=== PATIENT | male | born 1980 | race African-American/Black ===

== ENCOUNTER 2024-03-29 20:52 | Inpatient (IN) | payer OTHER ==
[2024-03-29] MEDS ORDERED: ONDANSETRON 4 MG/2 ML VIAL ONE (21:06)
[2024-03-29] MEDS ORDERED: LORazepam 2 MG/ML VIAL ONE (21:06)
[2024-03-29] MEDS ORDERED: ASPIRIN 81 MG CHEWABLE TABLET ONE (21:07)
[2024-03-29] MEDS ORDERED: MORPHINE 4 MG/ML SYR ONE (21:07)
[2024-03-29] MEDS ORDERED: NA CHLORIDE 0.9% 1,000 ML ONE (21:07)
[2024-03-29 21:28] LABS: Absolute Basophils 0.1 K/uL (0-0.5); Absolute Eosinophils 0.1 K/uL (0-0.5); Absolute Lymphocytes (CBC) 3.6 K/uL (0.7-4.9); Absolute Monocytes 0.9 K/uL (0.1-1.3); Absolute Neutrophil 5.2 K/uL (1.8-8.0); Basophils % 0.6 % (0-1.3); Eosinophils % 1.3 % (0-4.4); Hematocrit 41.9 % (39.6-49.0); Hemoglobin 13.9 g/dL (13.6-17.9); Lymphocytes % 36.6 % (15.3-44.8); MCH 26.8 pg (27.0-35.0); MCHC 33.2 g/dL (32.0-36.0); MCV 80.8 fL (80-100); MPV 8.6 fL (7.6-11.3); Monocytes % 9.4 % (3.3-12.3); Neutrophils % 52.1 % (41.7-73.7); Platelets 264 thou/uL (152-406); RBC Red Blood Cell Count 5.19 M/uL (4.33-5.43); Red Cell Distribution Width 14.4 % (12.1-15.2)
[2024-03-29 21:32] LABS: PT Prothrombin Time 11.6 SECONDS (9.5-12.5); Protime INR 1.06
[2024-03-29 21:55] LABS: ALT/SGPT 37 U/L (16-61); Albumin 3.8 g/dL (3.4-5.0); Albumin/Globulin Ratio 0.9 (1.1-1.8); Alkaline Phosphatase 77 U/L (45-117); Anion Gap 8.6 mEq/L (5.0-15.0); BUN Blood Urea Nitrogen 9 mg/dL (7-18); Bicarbonate 27 mEq/L (21-32); Bilirubin Total 0.4 mg/dL (0.2-1.0); Globulin 4.1 g/dL (2.3-3.5); Glomerular Filtration Rate 83 ml/min (=/>90); Glucose Level 104 mg/dL (74-106); NT PRO-BNP 41 pg/mL (<125); Protein, Total 7.9 g/dL (6.4-8.2); Sodium Level 139 mEq/L (136-145); Troponin High Sensitivity 3.5 pg/mL (<58.9)
[2024-03-29 21:56] LABS: AST/SGOT 38 U/L (15-37); Bilirubin Direct < 0.2 mg/dL (0-0.2); Bilirubin Indirect, Calculated 0.2 mg/dL (0.2-0.8); Magnesium 2.1 mg/dL (1.6-2.4); Potassium 3.6 mEq/L (3.5-5.1)
--- NOTE | 2024-03-29 22:10 | RAD REPORT ---
EXAM DESCRIPTION: RAD - Chest Single View - 03/29/2024 10:04 pm CLINICAL HISTORY: CHEST PAIN Chest pain. COMPARISON: No comparisons FINDINGS: Portable technique limits examination quality. The lungs are grossly clear. The heart is normal in size. No displaced fractures. IMPRESSION: No acute intrathoracic process suspected.
[2024-03-29 23:35] LABS: Barbiturates NEGATIVE (NEGATIVE); Benzodiazepines NEGATIVE (NEGATIVE); Cocaine NEGATIVE (NEGATIVE); METHAMPHETAM NEGATIVE (NEGATIVE); Methadone NEGATIVE (NEGATIVE); Opiates POSITIVE (NEGATIVE); Phencyclidine NEGATIVE (NEGATIVE); THC Cannibis NEGATIVE (NEGATIVE)
--- NOTE | 2024-03-30 01:54 | EDPHYS ---
Physician Documentation [facility] Name: Carmelo Mcclendon III Age: 43 yrs Sex: Male : 1980 Arrival Date: 03/29/2024 Time: 20:52 Bed 3 Private MD: ED Physician Jose Sullivan HPI: 03/30 01:38 This 43 yrs old Black Male presents to ER via Wheelchair with complaints of Chest Pain. sp4 01:46 43-year-old male presents with acute onset midsternal chest pain associated with sp4 shortness of breath and diaphoresis. This happened just prior to arrival. . Historical: - Allergies: 03/29 21:02 No Known Allergies; tl4 - Home Meds: 21:02 None [Active]; tl4 - PMHx: 21:02 None; tl4 - PSHx: 21:02 None; tl4 - Immunization history:: Adult Immunizations unknown. - Infectious Disease History:: Denies. - Social history:: Smoking status: Patient denies any tobacco usage or history of. - Family history:: not pertinent. ROS: 03/30 01:46 Constitutional: Negative for fever, chills, and weight loss, positive for acute chest sp4 pain shortness of breath diaphoresis All other systems are negative, Exam: 01:46 Constitutional: This is a well developed, well nourished patient who is awake, alert, sp4 positive for diaphoretic male in no acute distress positive for Thompson sign on arrival. Head/Face: Normocephalic, atraumatic. Eyes: Pupils equal round and reactive to light, extra-ocular motions intact. Lids and lashes normal. Conjunctiva and sclera are not injected. Cornea within normal limits. Periorbital areas with no swelling, redness, or edema. ENT: Nares patent. No nasal discharge, no septal abnormalities noted. Tympanic membranes are normal and external auditory canals are clear. Oropharynx with no redness, swelling, or masses, exudates, or evidence of obstruction, uvula midline. Mucous membranes moist. Neck: Trachea midline, no thyromegaly or masses palpated, and no cervical lymphadenopathy. Supple, full range of motion without nuchal rigidity, or vertebral point tenderness. Chest/axilla: Normal chest wall appearance and motion. Nontender with no deformity. No lesions are appreciated. Cardiovascular: Regular rate and rhythm with a normal S1 and S2. No gallops, murmurs, or rubs. Normal PMI, no JVD. No pulse deficits. Respiratory: Lungs have equal breath sounds bilaterally, clear to auscultation and percussion. No rales, rhonchi or wheezes noted. No increased work of breathing, no retractions or nasal flaring. Abdomen/GI: Soft, with normal bowel sounds. No distension or tympany. No guarding or rebound. No evidence of tenderness throughout. Back: No spinal tenderness. No costovertebral tenderness. Skin: Warm, dry with normal turgor. Normal color with no rashes, no lesions, and no evidence of cellulitis. MS/ Extremity: Pulses equal, no cyanosis. Neurovascular intact. Full, normal range of motion. Neuro: Awake and alert, GCS 15, oriented to person, place, time, and situation. Cranial nerves II-XII grossly intact. Motor strength 5/5 in all extremities. Sensory grossly intact. Psych: Awake, alert, with orientation to person, place and time. Behavior, mood, and affect are within normal limits 01:46 ECG was reviewed by the Attending Physician. EKG at 2102 normal sinus rhythm, normal EKG rate 73 Vital Signs: 03/29 21:01 BP 184 / 119; Pulse 76; Resp 15; Temp 98.3(O); Pulse Ox 97% on R/A; Weight 106.59 kg; tl4 Height 5 ft. 11 in. ; Pain 10/10; 21:10 BP 162 / 104; Pulse 78; Resp 18; Pulse Ox 100% on R/A; km8 21:15 BP 144 / 89; Pulse 71; Resp 17; Pulse Ox 99% on R/A; km8 22:00 BP 147 / 99; Pulse 71; Resp 18; Pulse Ox 99% on R/A; km8 22:30 BP 136 / 87; Pulse 73; Resp 17; Pulse Ox 98% on R/A; km8 23:00 BP 148 / 99; Pulse 68; Resp 16; Pulse Ox 99% on R/A; km8 23:30 BP 134 / 90; Pulse 68; Resp 16; Pulse Ox 100% on R/A; km8 03/30 00:00 BP 164 / 118; Pulse 65; Resp 18; Pulse Ox 100% on R/A; km8 00:30 BP 138 / 96; Pulse 66; Resp 18; Pulse Ox 100% on R/A; km8 01:00 BP 151 / 105; Pulse 62; Resp 16; Pulse Ox 99% on R/A; km8 01:30 BP 146 / 97; Pulse 60; Resp 16; Pulse Ox 100% on R/A; km8 02:00 BP 152 / 100; Pulse 62; Resp 16; Pulse Ox 100% on R/A; km8 03/29 21:01 Body Mass Index 32.77 (106.59 kg, 180.34 cm) tl4 03/29 21:01 Pain Scale: Adult tl4 MDM: 03/29 21:07 Patient medically screened. sp4 03/30 00:42 ED course: IMPRESSION: The thoracic and abdominal aorta are within normal limits. No sp4 evidence for significant aneurysm and/or dissection. No evidence for significant central pulmonary embolus. Slightly distended gallbladder with minimal gallbladder wall thickening. No definitive pericholecystic fluid and/or cholelithiasis. Recommend further evaluation with right upper quadrant ultrasound and/or hepatobiliary scan. Electronically signed by: Jasbir Rice MD 03/29/2024 11:52 PM CD. 01:38 ED course: EXAM DESCRIPTION: Abdomen Exam Limited, gallbladder sonogram CLINICAL sp4 HISTORY: ABD PAIN COMPARISON: None FINDINGS: There are no gallstones, gallbladder wall thickening or pericholecystic fluid collection. Common bile duct is nondilated. The common bile duct measured 3.3 mm in diameter. IMPRESSION: No acute abnormalities. . 01:51 Differential diagnosis: acute myocardial infarction, acute pericarditis, anxiety, sp4 coronary artery disease chest wall pain, congestive heart failure cholecystitis. HEART Score: History: Highly Suspicious (2), ECG: Normal (0), Age: < or = 45 years (0), Risk Factors: No Risk Factors Known (0), Troponin: < or = 1 x Normal Limit (0), Total Score = 2. The patient was given aspirin in the Emergency Department. Data reviewed: vital signs. Data reviewed: nurses notes, lab test result(s), EKG, radiologic studies, CT scan, ultrasound. ED course: We requested admission secondary to presentation. We requested observation. . 03/29 20:58 Order name: Basic Metabolic Panel; Complete Time: 23:58 sp4 03/29 20:58 Order name: CBC with Diff; Complete Time: 22:12 sp4 03/29 20:58 Order name: LFT's; Complete Time: 23:58 sp4 03/29 20:58 Order name: Magnesium; Complete Time: 23:58 sp4 03/29 20:58 Order name: NT PRO-BNP; Complete Time: 23:58 sp4 03/29 20:58 Order name: PT-INR; Complete Time: 22:12 sp4 03/29 20:58 Order name: Troponin HS; Complete Time: 23:58 sp4 03/29 22:12 Order name: Urine Drug Screen; Complete Time: 23:58 sp4 03/29 22:18 Order name: T4 Free; Complete Time: 23:58 EDMS 03/29 22:18 Order name: Thyroid Stimulating Hormone; Complete Time: 23:58 EDMS 03/29 23:58 Order name: Troponin High Sensitivity; Complete Time: 01:35 sp4 03/30 02:01 Order name: D-Dimer EDMS 03/30 02:06 Order name: Hemoglobin A1c EDMS 03/30 02:06 Order name: Lipid Profile EDMS 03/30 02:07 Order name: Troponin High Sensitivity EDMS 03/29 20:58 Order name: XRAY Chest (1 view); Complete Time: 22:12 4 03/29 21:06 Order name: CT Aorta for Dissection sp4 03/30 00:43 Order name: US Abdomen Limited sp4 03/30 02:07 Order name: Echo with Doppler EDKS 03/29 20:58 Order name: EKG; Complete Time: 20:59 4 03/29 20:58 Order name: Cardiac monitoring; Complete Time: 21:04 4 03/29 20:58 Order name: EKG - Nurse/Tech; Complete Time: 21:04 4 03/29 20:58 Order name: IV Saline Lock; Complete Time: 21:04 [facility] 03/29 20:58 Order name: Labs collected and sent; Complete Time: 21:04 4 03/29 20:58 Order name: O2 Per Protocol; Complete Time: 21:04 4 03/29 20:58 Order name: O2 Sat Monitoring; Complete Time: 21: 4 EC:46 Rate is 73 beats/min. Rhythm is regular, Normal Sinus Rhythm. QRS [place] is Normal. [place] sp4 interval is normal. QRS interval is normal. QT interval is normal. No Q waves. T waves are Normal. No ST changes noted. Clinical impression: Normal ECG. Interpreted by me. Reviewed by me. Administered Medications: 03/29 21:09 Drug: morphine IVP or IV 4 mg IVP once over 4 mins Route: IVP; Infused Over: 4 mins; cp4 Site: right antecubital; 21:57 Follow up: Response: No adverse reaction cp4 21:09 Drug: Ativan IVP 1 mg IVP once Route: IVP; Site: right antecubital; cp4 21:57 Follow up: Response: No adverse reaction cp4 21:09 Drug: Ondansetron IVP 4 mg IVP once; over 2 minutes Route: IVP; Site: right antecubital;cp4 21:56 Follow up: Response: No adverse reaction cp4 21:57 Follow up: Response: No adverse reaction cp4 21:09 Drug: NS 0.9% IV 1000 ml IV at 125 ml/hr continuous Route: IV; Rate: 125 ml/hr; Site: cp4 right antecubital; 21:14 Drug: Aspirin PO Chewable Tablet 324 mg PO once; 81 mg tablets x 4 Route: PO; cp4 22:14 Follow up: Response: No adverse reaction km8 Disposition Summary: 03/30/24 01:54 Hospitalization Ordered Notes: Hospitalization Status: Observation sp4 Provider: Prince ximena Steiner [facility] sp4 Condition: Stable sp4 Problem: new sp4 Symptoms: have improved sp4 Bed/Room Type: Standard sp4 Room Assignment: 223(03/30/24 02:07) Diagnosis - Angina pectoris, unspecified sp4 Forms: - Medication Reconciliation Form sp4 - SBAR form sp4 - Leadership Thank You Letter sp4 Signatures: Dispatcher [employer] Francesca Dunn Sergey, MD MD sp4 Mirian Castro cp4 Gary Cid RN RN tl4 Caren Garcia RN km8 Corrections: (The following items were deleted from the chart) 21: 21:02 PMHx: Unable to Obtain; tl4 tl4 21:03 21:02 PMHx: Unable to Obtain; tl4 tl4 22:16 22:13 THYROID STIMULAT HORMONE+C.LAB.BRZ ordered. EDMS EDMS 22:16 22:13 T4 FREE+C.LAB.BRZ ordered. EDMS EDMS 23:59 23:59 Troponin High Sensitivity+C.LAB.BRZ ordered. EDMS EDMS 03/30 02:07 01:54 sp4 wm
--- NOTE | 2024-03-30 01:54 | ER ---
Nurse's Notes [facility] Name: Carmelo Mcclendon III Age: 43 yrs Sex: Male : 1980 Arrival Date: 03/29/2024 Time: 20:52 Bed 3 Private MD: Diagnosis: Angina pectoris, unspecified Presentation: 03/29 21:01 Chief complaint: Patient states: Pt c/o sudden onset of non-reproducibe, non-radiating tl4 left side chest pain approx 45 min ago. Pt also c/o nausea and diaphoresis. Coronavirus screen: At this time, the client does not indicate any symptoms associated with coronavirus-19. Ebola Screen: No symptoms or risks identified at this time. Initial Sepsis Screen: Does the patient meet any 2 criteria? No. Patient's initial sepsis screen is negative. Does the patient have a suspected source of infection? No. Patient's initial sepsis screen is negative. Risk Assessment: Do you want to hurt yourself or someone else? Patient reports no desire to harm self or others. Onset of symptoms was March 29, 2024 at 20:15. 21:01 Method Of Arrival: Wheelchair tl4 21:01 Acuity: BREANNA 2 tl4 Triage Assessment: 21:03 General: Appears uncomfortable, Behavior is cooperative, anxious. Pain: Complains of tl4 pain in chest. EENT: No signs and/or symptoms were reported regarding the EENT system. Neuro: Level of Consciousness is awake, alert, obeys commands, Oriented to person, place, time, situation. Cardiovascular: Reports chest pain, diaphoresis, nausea, shortness of breath. Respiratory: Reports shortness of breath. GI: No signs and/or symptoms were reported involving the gastrointestinal system. : No signs and/or symptoms were reported regarding the genitourinary system. Derm: No signs and/or symptoms reported regarding the dermatologic system. Musculoskeletal: No signs and/or symptoms reported regarding the musculoskeletal system. Historical: - Allergies: 21:02 No Known Allergies; tl4 - Home Meds: 21:02 None [Active]; tl4 - PMHx: 21:02 None; tl4 - PSHx: 21:02 None; tl4 - Immunization history:: Adult Immunizations unknown. - Infectious Disease History:: Denies. - Social history:: Smoking status: Patient denies any tobacco usage or history of. - Family history:: not pertinent. Screenin:06 [facility] ED Fall Risk Assessment (Adult) History of falling in the last 3 months, cp4 including since admission No falls in past 3 months (0 pts) Confusion or Disorientation No (0 pts) Intoxicated or Sedated No (0 pts) Impaired Gait No (0 pts) Mobility Assist Device Used No (0 pt) Altered Elimination No (0 pt) Score/Fall Risk Level 0 - 2 = Low Risk Oriented to surroundings, Maintained a safe environment, Assessed \T\ reinforced patient's understanding of fall precautions, Hourly rounding (assess needs \T\ fall precautionary measures) done. Abuse screen: Denies threats or abuse. Nutritional screening: No deficits noted. Tuberculosis screening: No symptoms or risk factors identified. Assessment: 21:06 General: Appears distressed, Behavior is calm, cooperative, appropriate for age. Pain: cp4 Complains of pain in chest Pain does not radiate. Pain began 30 min ago. 22:08 Reassessment: Patient appears in no apparent distress at this time. Patient and/or 8 family updated on plan of care and expected duration. Pain level reassessed. Patient is alert, oriented x 3, equal unlabored respirations, skin warm/dry/pink. pt states the pain got better but now it's coming back. 23:07 Reassessment: Patient appears in no apparent distress at this time. No changes from km8 previously documented assessment. Patient and/or family updated on plan of care and expected duration. Pain level reassessed. Patient is alert, oriented x 3, equal unlabored respirations, skin warm/dry/pink. 05/09 00:07 Reassessment: Patient appears in no apparent distress at this time. No changes from km8 previously documented assessment. Patient and/or family updated on plan of care and expected duration. Pain level reassessed. Patient is alert, oriented x 3, equal unlabored respirations, skin warm/dry/pink. 01:02 Reassessment: Patient appears in no apparent distress at this time. No changes from km8 previously documented assessment. Patient and/or family updated on plan of care and expected duration. Pain level reassessed. Patient is alert, oriented x 3, equal unlabored respirations, skin warm/dry/pink. 02:14 Reassessment: report faxed to [address] [place] [address] Vital Signs: 03/29 21:01 BP 184 / 119; Pulse 76; Resp 15; Temp 98.3(O); Pulse Ox 97% on R/A; Weight 106.59 kg; tl4 Height 5 ft. 11 in. ; Pain 10/10; 21:10 BP 162 / 104; Pulse 78; Resp 18; Pulse Ox 100% on R/A; km8 21:15 BP 144 / 89; Pulse 71; Resp 17; Pulse Ox 99% on R/A; km8 22:00 BP 147 / 99; Pulse 71; Resp 18; Pulse Ox 99% on R/A; km8 22:30 BP 136 / 87; Pulse 73; Resp 17; Pulse Ox 98% on R/A; km8 23:00 BP 148 / 99; Pulse 68; Resp 16; Pulse Ox 99% on R/A; km8 23:30 BP 134 / 90; Pulse 68; Resp 16; Pulse Ox 100% on R/A; km8 03/30 00:00 BP 164 / 118; Pulse 65; Resp 18; Pulse Ox 100% on R/A; km8 00:30 BP 138 / 96; Pulse 66; Resp 18; Pulse Ox 100% on R/A; km8 01:00 BP 151 / 105; Pulse 62; Resp 16; Pulse Ox 99% on R/A; km8 01:30 BP 146 / 97; Pulse 60; Resp 16; Pulse Ox 100% on R/A; km8 02:00 BP 152 / 100; Pulse 62; Resp 16; Pulse Ox 100% on R/A; km8 03/29 21:01 Body Mass Index 32.77 (106.59 kg, 180.34 cm) tl4 03/29 21:01 Pain Scale: Adult tl4 ED Course: 03/29 20:54 Patient arrived in ED. tl4 20:55 Mirian Castro is Primary Nurse. cp4 20:58 Jose Sullivan MD is Attending Physician. sp4 21:02 Triage completed. tl4 21:04 Arm band placed on left wrist. tl4 21:04 Basic Metabolic Panel Sent. km8 21:04 CBC with Diff Sent. km8 21:04 LFT's Sent. km8 21:04 Magnesium Sent. km8 21:04 NT PRO-BNP Sent. km8 21:04 PT-INR Sent. km8 21:04 Troponin HS Sent. km8 21:06 Bed in low position. Call light in reach. Side rails up X2. Provided Education on: cp4 chest pain. Client placed on continuous cardiac and pulse oximetry monitoring. NIBP monitoring applied. corner cutter on. 21:06 No provider procedures requiring assistance completed. Inserted saline lock: 20 gauge cp4 in right antecubital area, using aseptic technique. Blood collected. O2 via room air. 22:06 XRAY Chest (1 view) In Process Unspecified. EDMS 22:08 Primary Nurse role handed off by Mirian Castro km8 22:08 Caren Garcia, RN is Primary Nurse. km8 22:58 Urine Drug Screen Sent. km8 22:58 Urine collected: clean catch specimen, héctor colored. km8 23:34 CT Aorta for Dissection In Process Unspecified. EDMS 05 00:08 Troponin High Sensitivity Sent. tm6 01:09 US Abdomen Limited In Process Unspecified. EDMS 01:53 Prince Steiner MD is Hospitalizing Provider. sp4 02:30 Patient admitted, IV remains in place. km8 Administered Medications: 03/29 21:09 Drug: morphine IVP or IV 4 mg IVP once over 4 mins Route: IVP; Infused Over: 4 mins; cp4 Site: right antecubital; 21:57 Follow up: Response: No adverse reaction cp4 21:09 Drug: Ativan IVP 1 mg IVP once Route: IVP; Site: right antecubital; cp4 21:57 Follow up: Response: No adverse reaction cp4 21:09 Drug: Ondansetron IVP 4 mg IVP once; over 2 minutes Route: IVP; Site: right antecubital;cp4 21:56 Follow up: Response: No adverse reaction cp4 21:57 Follow up: Response: No adverse reaction cp4 21:09 Drug: NS 0.9% IV 1000 ml IV at 125 ml/hr continuous Route: IV; Rate: 125 ml/hr; Site: cp4 right antecubital; 21:14 Drug: Aspirin PO Chewable Tablet 324 mg PO once; 81 mg tablets x 4 Route: PO; cp4 22:14 Follow up: Response: No adverse reaction [facility] Medication: 21:06 VIS not applicable for this client. cp4 Outcome: 03/30 01:54 Decision to Hospitalize by Provider. sp4 02:49 Admitted to Med/surg accompanied by nurse, via wheelchair, room 223, with chart, km8 02:49 Condition: stable 02:49 Instructed on the need for admit, Demonstrated understanding of instructions, 02:50 Patient left the ED. km8 Signatures: Dispatcher [employer] EDMS Jose Sullivan MD MD sp4 Mirian Castro 4 Caren Garcia RN RN km8 Darek Christopher RN RN tm6 Gary Cid RN RN tl4 Corrections: (The following items were deleted from the chart) 03/29 21:03 21:02 PMHx: Unable to Obtain; tl4 tl4 21:03 21:02 PMHx: Unable to Obtain; tl4 tl4 21:15 21:01 Temp 98.3F Oral; 106.59 kg; Height 5 ft. 11 in.; BMI: 32.7; Pain 10/10, Adult; tl4tl4 21:35 21:00 BP 162 / 104; Pulse 78bpm; Resp 18bpm; Pulse Ox 100% RA; km8 km8
--- NOTE | 2024-03-30 02:04 | P.HP ---
Certification for Inpatient Patient admitted to: Observation With expected LOS: <2 Midnights Practitioner: I am a practitioner with admitting privileges, knowledge of patient current condition, hospital course, and medical plan of care. Services: Services provided to patient in accordance with Admission requirements found in Title 42 Section 412.3 of the Code of Federal Regulations Patient History Date of Service: 03/30/24 Reason for admission: chest pain History of Present Illness: Patient is a generally healthy 43-year-old -Prydeinig male. He has obesity and possibly glaucoma. He does not have a formal diagnosis of hypertension.. He drove himself to the ER after sudden onset of chest pain. Patient called over the phone and sounded in much distress. He arrived to the ER slightly hypertensive. The first 2 sets of his troponins were negative. A CT dissection protocol was negative. I arrived at bedside and found the patient asleep. was able to tell me some of the history. Patient had just been medicated morphine and was unable to provide any history. Physical Examination - Physical Exam General: Obese HEENT: Atraumatic, Normocephalic Cardiovascular: No edema, Normal pulses, Regular rate/rhythm Musculoskeletal: No clubbing, No swelling, No contractures, No erythema Neurological: Other (Unable to assess) - Studies Laboratory Data (last 24 hrs) 03/29/24 03/29/24 03/29/24 21:04 21:04 21:04 WBC 9.90 Hgb 13.9 Hct 41.9 Plt Count 264 PT 11.6 INR 1.06 Sodium 139 Potassium 3.6 BUN 9 Creatinine 1.12 Glucose 104 Magnesium 2.1 Total Bilirubin 0.4 AST 38 H ALT 37 Alkaline Phosphatase 77 Assessment and Plan - Problems (Diagnosis) (1) Chest pain Current Visit: Yes Status: Acute - Plan Assessment Patient is a 43-year-old generally healthy -Prydeinig male who is presenting to the ER for acute onset of chest pain. First 2 troponins were negative. Patient's EKG has no signs of ischemia. Is actually normal EKG. Chest pain ACS rule out Will admit under observation with telemetry Follow 2D echo Obtain lipid panel hemoglobin A1c His urine toxicology was negative for chest pain causing substances Follow D-dimer to rule out pulmonary embolism Hypertension Most likely present for a long time but formally not diagnosed Will start patient on nifedipine mildly elevated blood pressure Glaucoma/cataract Most likely from longstanding hypertension Obesity Patient will benefit from lifestyle modification with diet and exercise DVT prophylaxisLovenox DispoHome tomorrow if medically cleared - Advance Directives Does patient have a Living Will: No Does patient have a Durable POA for Healthcare: No
[2024-03-30] MEDS ORDERED: NIFEDIPINE XL 30 MG TABLET PO SCH (02:06)
[2024-03-30 03:07] VITALS: BMI 31.1
[2024-03-30] MEDS: NIFEDIPINE XL 30 MG TABLET PO SCH (03:35)
[2024-03-30] MEDS: NA CHLORIDE 0.9% 1,000 ML IV SCH (03:36)
[2024-03-30] MEDS: ENOXAPARIN 40 MG/0.4 ML SQ SCH (09:00)
--- NOTE | 2024-03-30 09:49 | P.PN ---
Subjective Date of Service: 03/30/24 Chief Complaint: chest pain Subjective: Improving Patient is a generally healthy 43-year-old -[place] male. He has obesity and possibly glaucoma. He does not have a formal diagnosis of hypertension.. He drove himself to the ER after sudden onset of chest pain. Patient called over the phone and sounded in much distress. He arrived to the ER slightly hypertensive. The first 2 sets of his troponins were negative. A CT dissection protocol was negative. I arrived at bedside and found the patient asleep. was able to tell me some of the history. Patient had just been medicated morphine and was unable to provide any history. This am at 0610, pt was gently awakened. States when he came last pm his chest pain rated 25/10, states he is feeling better but still feels pain 5/10. States he really does not have much history but is concerned as he has a family hx of premature heart disease. Stress test ordered for today. Pt voices understanding of plan of care. <Mimi Adames - Last Filed: 03/30/24 09:49> Date of Service: 03/30/24 <Daxa Enrique - Last Filed: 03/30/24 11:09> Review of Systems 10-point ROS is otherwise unremarkable General: As per HPI Cardiovascular: As per HPI <Mimi Adames - Last Filed: 03/30/24 09:49> Physical Examination - Vital Signs Temperature: 98.5 F Blood Pressure: 132/75 Pulse: 71 Respirations: 18 Pulse Ox (%): 96 - Physical Exam General: Alert, Oriented x3 HEENT: Atraumatic, Normocephalic Neck: Supple Respiratory: Normal air movement Cardiovascular: Normal pulses, Regular rate/rhythm Capillary refill: <2 Seconds Gastrointestinal: Soft and benign Musculoskeletal: No clubbing, No swelling Integumentary: No rashes Neurological: Normal speech, Normal tone Lymphatics: No axilla or inguinal lymphadenopathy External genitalia: Deferred Rectal: Deferred - Studies Laboratory Data (last 24 hrs) 03/29/24 03/29/24 03/29/24 21:04 21:04 21:04 WBC 9.90 Hgb 13.9 Hct 41.9 Plt Count 264 PT 11.6 INR 1.06 Sodium 139 Potassium 3.6 BUN 9 Creatinine 1.12 Glucose 104 Magnesium 2.1 Total Bilirubin 0.4 AST 38 H ALT 37 Alkaline Phosphatase 77 <Mimi Adames - Last Filed: 03/30/24 09:49> - Studies Laboratory Data (last 24 hrs) 03/29/24 03/29/24 03/29/24 21:04 21:04 21:04 WBC 9.90 Hgb 13.9 Hct 41.9 Plt Count 264 PT 11.6 INR 1.06 Sodium 139 Potassium 3.6 BUN 9 Creatinine 1.12 Glucose 104 Magnesium 2.1 Total Bilirubin 0.4 AST 38 H ALT 37 Alkaline Phosphatase 77 <Daxa Enrique C - Last Filed: 03/30/24 11:09> Assessment And Plan - Plan (1) Chest pain Current Visit: Yes Status: Acute - Plan Assessment Patient is a 43-year-old generally healthy -[place] male who is presenting to the ER for acute onset of chest pain. First 2 troponins were negative. Patient's EKG has no signs of ischemia. Is actually normal EKG. Chest pain ACS rule out Will admit under observation with telemetry Follow 2D echo Obtain lipid panel hemoglobin A1c His urine toxicology was negative for chest pain causing substances Follow D-dimer to rule out pulmonary embolism 03/30/24 Stress test ordered Hypertension Most likely present for a long time but formally not diagnosed Will start patient on nifedipine mildly elevated blood pressure Glaucoma/cataract Most likely from longstanding hypertension Obesity Patient will benefit from lifestyle modification with diet and exercise DVT prophylaxisLovenox DispoHome tomorrow if medically cleared <Mimi Adames - Last Filed: 03/30/24 09:49> - Plan Pt seen and examined. I agree with the note by the [employer]ER. Troponin is negative x 3. Will keep pt NPO for NM stress test. He has positive Family hx of CAD. Will also give protonix for GERD. Cardiology is following. Continue atorvastatin. <Daxa Enrique - Last Filed: 03/30/24 11:09>
--- NOTE | 2024-03-30 10:27 | P.CNS ---
Date of Consult: 03/30/24 Chief Complaint: chest pain History of Present Illness: Patient with no significant PMH except for family history of premature CAD presented with chest pain x2 stared the day before yesterday, felt like pressure, with some left arm tingling sensation, no other cardiac symptoms, blood work shows HLD. Allergies No Known Allergies Allergy (Unverified 03/30/24 03:08) Home Medications: NK [No Home Meds] 03/30/24 - Past Medical/Surgical History Diabetic: No -: I&D left leg abcess -: susu. dislocated sx - Family History Mother Medical History: Cancer Father Medical History: Stroke Sister Medical History: Heart disease - Social History Alcohol use: Yes CD- Drugs: No Caffeine use: Yes Place of Residence: Home Review of Systems 10-point ROS is otherwise unremarkable Physical Examination Temp Pulse Resp BP Pulse Ox 98.5 F 71 18 132/75 96 03/30/24 09:51 03/30/24 09:51 03/30/24 09:51 03/30/24 09:51 03/30/24 09:51 General: Alert, Oriented x3 HEENT: Atraumatic Neck: Supple Respiratory: Clear to auscultation bilaterally Cardiovascular: No edema, Normal S1 S2 Gastrointestinal: Normal bowel sounds Laboratory Data (last 24 hrs) 03/29/24 03/29/24 03/29/24 21:04 21:04 21:04 WBC 9.90 Hgb 13.9 Hct 41.9 Plt Count 264 PT 11.6 INR 1.06 Sodium 139 Potassium 3.6 BUN 9 Creatinine 1.12 Glucose 104 Magnesium 2.1 Total Bilirubin 0.4 AST 38 H ALT 37 Alkaline Phosphatase 77 - Problems (1) HLD (hyperlipidemia) Current Visit: Yes Status: Acute Plan: agree with Lipitor 40 mg daily repeat lipid panel in 6-8 weeks. (2) HTN (hypertension) Current Visit: Yes Status: Acute Plan: agree with lopressor 12.5 mg po BID (3) Chest pain Current Visit: Yes Status: Acute Plan: risk factors including family history of premature CAD and HLD Stress test today Continue ASA 81 mg daily
--- NOTE | 2024-03-30 11:12 | RAD REPORT ---
EXAM DESCRIPTION: CT - Angio Aorta For Dissection - 03/30/2024 6:32 am CLINICAL HISTORY: 43 years, Male, chest pain COMPARISON: None TECHNIQUE: Multiple transaxial tomograms of the thoracic and abdominal aorta were performed utilizin g 3 mm slight thickness at 3 mm interval reconstruction, from the lung apices to the ischial tuberosi ties, before and after the administration of large bolus of IV contrast for complete opacification of the thoracic, abdominal aorta and iliac arteries. 2-D and 3-D multiplanar reformats, volume rendering technique and maximum intensity projection images were generated and reviewed. An individualized dose optimization technique, Automated Exposure Control, was utilized for the perfo rmed procedure. FINDINGS: Thoracic aorta/great vessels: The thoracic aorta demonstrate to be within normal limits. No evidence for significant aneurysm and/o r dilatation. There is two-vessel aortic arch with common origin of the right brachycephalic artery a nd left common carotid. No evidence for significant stenosis and/or occlusion proximal vessels Aorta/iliac arteries: The visualized abdominal aorta is patent without significant aneurysmal dilatation or evidence of dis section. No significant atherosclerotic calcifications. Bilateral common iliac arteries are patent wi thout significant atherosclerotic disease or stenosis. No dissection or aneurysm appreciated.. The celiac trunk, superior mesenteric and inferior mesenteric artery demonstrate to be patent with no evidence for significant stenosis and/or occlusion. There are single bilateral renal arteries with no significant abnormalities. Chest: Lower neck/chest wall: Visualized thyroid gland and soft tissues are normal. No adenopathy. Lungs and airways: The lung parenchyma demonstrate dependent atelectatic changes. No evidence of airs pace or interstitial process. No significant pulmonary nodules and/or masses identified. No focal are as of consolidation. Airways: The trachea mainstem bronchus demonstrate to be unremarkable. Pleural: There are no pleural effusion. No evidence for pneumothorax. Hemidiaphragms are normally pos itioned. Mediastinum and lymph nodes: No significant mediastinal and/or hilar lymphadenopathy. The axillary re gions demonstrate to be clear. Heart: Normal heart size. No pericardial effusion. No coronary arteries calcifications. Thoracic aorta: The thoracic aorta demonstrate to be within normal limits. Pulmonary arteries: The central pulmonary arteries demonstrate to be within normal limits. No evidenc e for significant central filling defect to suggest pulmonary embolus. Osseous structures and chest wall: The thoracic spine demonstrate to be within normal limits. No evid ence for compression deformities and/or significant skeletal lesions. Abdomen and pelvis: Liver: The liver demonstrates to be normal, no focal lesions identified. Gallbladder: The gallbladder demonstrate to be slightly distended with minimal gallbladder wall thick ening on axial image 81/232. No definitive pericholecystic fluid and/or cholelithiasis. Adrenal glands: The adrenal glands demonstrate to be normal. Pancreas: The pancreas demonstrate to be normal. Spleen: The spleen demonstrate to be within normal limits. Kidneys: The kidneys demonstrate normal uptake of contrast media. There is no evidence for nephroli thiasis and/or hydronephrosis . There are no significant cystic lesions. GI: Grossly the unopacified stomach, small bowel and large bowel demonstrate to be within normal limi ts. No evidence for bowel dilatation and/or free air. The appendix is normal. The left-sided colon de monstrate to be decompressed with no gross abnormalities. : The urinary bladder demonstrate to be partially distended with no gross abnormalities. Genitalia: The prostate gland is normal. Retroperitoneum: There is no retroperitoneal lymphadenopathy. There is no evidence for ascites and/or abnormal fluid collections. Bones: The bony structures demonstrate to be within normal limits. Soft tissues: The rest of the soft tissue and bony structures are within normal limits. IMPRESSION: The thoracic and abdominal aorta are within normal limits. No evidence for significant a neurysm and/or dissection. No evidence for significant central pulmonary embolus. Slightly distended gallbladder with minimal gallbladder wall thickening. No definitive pericholecysti c fluid and/or cholelithiasis. Recommend further evaluation with right upper quadrant ultrasound and/ or hepatobiliary scan. Electronically signed by: Jasbir Rice MD 03/29/2024 11:52 PM CDT Due to temporary technical issues with the PACS/Fluency reporting system, reports are being signed by the in house radiologist without review as a courtesy to ensure prompt reporting. The interpreting r adiologist is fully responsible for the content of the report.
[2024-03-30 11:14] VITALS: O2SAT 96
[2024-03-30] MEDS ORDERED: REGADENOSON 0.4 MG/5 ML SYR IV ONE (11:14)
--- NOTE | 2024-03-30 11:48 | RAD REPORT ---
EXAM DESCRIPTION: US - Abdomen Exam Limited - 03/30/2024 1:07 am CLINICAL HISTORY: ABD PAIN COMPARISON: None FINDINGS: There are no gallstones, gallbladder wall thickening or pericholecystic fluid collection. Common bile duct is nondilated. The common bile duct measured 3.3 mm in diameter. IMPRESSION: No acute abnormalities. Electronically signed by: Gurmeet Lyman MD 03/30/2024 01:30 AM CDT Due to temporary technical issues with the PACS/Fluency reporting system, reports are being signed by the in house radiologist without review as a courtesy to ensure prompt reporting. The interpreting R adiologist is fully responsible for the content of the report.
--- NOTE | 2024-03-30 12:04 | RAD REPORT ---
EXAM DESCRIPTION: NM - Rest Stress Cardiac Imaging - 03/30/2024 11:52 am CLINICAL HISTORY: Chest pain. COMPARISON: None. TECHNIQUE: The patient was administered 10.1 mCi of Tc 99m Sestamibi prior to resting SPECT imaging of the heart. The patient was then administered 29.9 mCi of Tc 99m Sestamibi following exercise or ph armacologic stress. Multiplanar SPECT images were reviewed. FINDINGS: There is uniformity of radiotracer uptake involving the entire left ventricular myocardiu m on rest and stress images. The left ventricular ejection fraction equals 66% IMPRESSION: Negative for a myocardial perfusion defect
--- NOTE | 2024-03-30 12:30 | P.DS ---
Admission Date: 03/30/24 Discharge Date: 03/30/24 Disposition: ROUTINE DISCHARGE Discharge Condition: GOOD Reason for Admission: chest pain Brief History of Present Illness: Patient is a generally healthy 43-year-old -[place] male. He has obesity and possibly glaucoma. He does not have a formal diagnosis of hypertension.. He drove himself to the ER after sudden onset of chest pain. Patient called over the phone and sounded in much distress. He arrived to the ER slightly hypertensive. The first 2 sets of his troponins were negative. A CT dissection protocol was negative. I arrived at bedside and found the pa tient asleep. was able to tell me some of the history. Patient had just been medicated morphine and was unable to provide any history. Hospital Course: Patient is a 43 yo male with past medical history of obesity and possible glaucoma who presented with chest pain. We admitted pt to r/o ACS. troponin was negative x 3 ( 3.5 -> 3.6 -> 4.6). We also started him on Nifedipine for htn and atorvastatin for HLD. We kept him NPO and did NM stress test. NM stress test was negative for stress induced ischemia. Pt reports symptoms of GERD and we gave him protonix. He was in NAD prior to discharge. Pt was advised to follow up with his PCP within 1 - 2 weeks. Vital Signs/Physical Exam: Temp Pulse Resp BP Pulse Ox 96.5 F L 70 17 122/64 97 03/30/24 12:00 03/30/24 12:00 03/30/24 12:00 03/30/24 12:00 03/30/24 12:00 Laboratory Data at Discharge: WBC 9.90 thou/uL (4.3-10.9) 03/29/24 21:04 Hgb 13.9 g/dL (13.6-17.9) 03/29/24 21:04 Hct 41.9 % (39.6-49.0) 03/29/24 21:04 Plt Count 264 thou/uL (152-406) 03/29/24 21:04 PT 11.6 SECONDS (9.5-12.5) 03/29/24 21:04 INR 1.06 03/29/24 21:04 Sodium 139 mEq/L (136-145) 03/29/24 21:04 Potassium 3.6 mEq/L (3.5-5.1) 03/29/24 21:04 BUN 9 mg/dL (7-18) 03/29/24 21:04 Creatinine 1.12 mg/dL (0.70-1.30) 03/29/24 21:04 Glucose 104 mg/dL (74-106) 03/29/24 21:04 Magnesium 2.1 mg/dL (1.6-2.4) 03/29/24 21:04 Total Bilirubin 0.4 mg/dL (0.2-1.0) 03/29/24 21:04 AST 38 U/L (15-37) H 03/29/24 21:04 ALT 37 U/L (16-61) 03/29/24 21:04 Alkaline Phosphatase 77 U/L (45-117) 03/29/24 21:04 Triglycerides 102 mg/dL (<150) 03/30/24 02:22 Cholesterol 211 mg/dL (<200) H 03/30/24 02:22 HDL Cholesterol 47 mg/dL (40-60) 03/30/24 02:22 Cholesterol/HDL Ratio 4.49 03/30/24 02:22 Home Medications: Atorvastatin Calcium [Lipitor] 40 mg PO BEDTIME 90 Days #90 tab 03/30/24 Nifedipine Xl [Procardia Xl*] 30 mg PO DAILY@1999 60 Days #60 tab 03/30/24 Pantoprazole [Protonix Tab*] 40 mg PO DAILYAC 30 Days #30 tab 03/30/24 New Medications: Atorvastatin Calcium [Lipitor] 40 mg PO BEDTIME 90 Days #90 tab Nifedipine Xl [Procardia Xl*] 30 mg PO DAILY@1999 60 Days #60 tab Pantoprazole [Protonix Tab*] 40 mg PO DAILYAC 30 Days #30 tab Physician Discharge Instructions: Continue ad susan activity. Take atorvastatin, nifedipine and protonix as prescribed. Follow up with PCP within 1 week Diet: AHA Activity: Ad susan Followup: NONE,NONE [Primary Care Provider] -
[2024-03-30 12:31] VITALS: BP 122/64; TEMP 96.5
--- NOTE | 2024-03-30 14:00 | EKG ---
Test Date: 2024-03-29 Test Time: 21:02:18 Electrical Technology Instructor: CM MEASUREMENT RESULTS: Intervals: Rate: 73 CA: 174 QRSD: 84 QT: 382 QTc: 420 [place]: P: 33 CA: 174 QRS: 57 T: 27 INTERPRETIVE STATEMENTS: Normal sinus rhythm Normal ECG No previous ECG available for comparison Electronically Signed On 03-30-24 13:59:16 CDT by Channing Hargrove
--- NOTE | 2024-03-30 14:21 | ECHO ---
HEIGHT: 5 ft 11 in WEIGHT: 223 lb 4.8 oz DATE OF STUDY: 03/30/[address]: Prince Jaya Steiner MD 2-DIMENSIONAL: YES M.MODE: YES DOPPLER: YES COLOR FLOW: YES TDS: PORTABLE: YES DEFINITY: BUBBLE STUDY: DIAGNOSIS: CHEST PAIN CARDIAC HISTORY: CATHERIZATION: NO SURGERY: NO PROSTHETIC VALVE: NO PACEMAKER: NO MEASUREMENTS (cm) DIASTOLIC (NORMALS) SYSTOLIC (NORMALS) IVSd 1.0 (0.6-1.2) LA Diam 2.6 (1.9-4.0) LVEF 61% LVIDd 4.3 (3.5-5.7) LVIDs 2.9 (2.0-3.5) %FS 32% LVPWd 1.3 (0.6-1.2) Ao Diam 2.6 (2.0-3.7) 2 DIMENSIONAL ASSESSMENT: RIGHT ATRIUM: NORMAL LEFT ATRIUM: NORMAL RIGHT VENTRICLE: NORMAL LEFT VENTRICLE: NORMAL TRICUSPID VALVE: NORMAL MITRAL VALVE: NORMAL PULMONIC VALVE: NORMAL AORTIC VALVE: NORMAL PERICARDIAL EFFUSION: NONE AORTIC ROOT: NORMAL LEFT VENTRICULAR WALL MOTION: NORMAL DOPPLER/COLOR FLOW: NORMAL COMMENTS: 1. NORMAL LEFT VENTRICULAR SYSTOLIC FUNCTION, EJECTION FRACTION 60-65%, NORMAL WALL MOTION 2. NORAML DIASTOLIC FUNCTION TECHNOLOGIST: PEREZ GERARD
--- NOTE | 2024-03-30 14:24 | TREADPHA ---
DX: CHEST PAIN Date of Study: 03/30/2024 Ht: 5' 11 " Wt: 223 lb 4.8 oz Consulting Physician: ATUL MEDICATIONS: LIPITOR, LOVENOX, PROCARDIA HISTORY: 43 YEAR OLD MALE WITH HISTORY OF HYPERTENSION, HIGH CHOLESTEROL, DRINK ALCOHOL OCCASIONALLY. NON SMOKER, NO DRUG USE PHYSICIAL EXAMINATION: RESTING B.P.: 111/56 RESTING H.R.: 77 RESTING EKG: NORMAL SINUS RHYTHM PROTOCOL: PHARMACOLOGIC EXERCISE TIME: 3:30 B.P. AT [place]AK STRESS: 103/52 IMPRESSION: LEXISCAN INJECTED. CARDIOLITE INJECTED - SEE NUCLEAR MEDICINE. PREMATURE VENTRICULAR COMPLEXES NOTED IN RECOVERY. CHEST PAIN NOTED MILD BUT RESOLVED. NO VENTRICULAR TACHYCARDIA, NO SUPRAVENTRICULAR TACHYCARDIA.
[2024-03-30] MEDS ORDERED: ATORVASTATIN 40 MG TAB PO SCH (21:00)
[2024-03-31] MEDS ORDERED: PANTOPRAZOLE 40MG TABLET PO SCH (06:30)
== END 2024-03-30 13:29 | disposition home or self-care (01) | DRG 313 ==
LOC: ER 20:52 → ERHOLD 03-30 01:58 → 2ND 03-30 02:38
PROVIDERS: ADMIT Internal Medicine; ATTEND Hospitalist
DX: R07.9 Chest pain, unspecified (principal); I10 Essential (primary) hypertension; H40.9 Unspecified glaucoma; H26.9 Unspecified cataract; E78.5 Hyperlipidemia, unspecified; K21.9 Gastro-esophageal reflux disease without esophagitis; E66.9 Obesity, unspecified; Z68.31 Body mass index [BMI] 31.0-31.9, adult; Z79.899 Other long term (current) drug therapy
CPT/HCPCS: 36415; 71045; 71275; 74175; 76705; 78452; 80048; 80061; 80076; 80307; 83036; 83735; 83880; 84439; 84443; 84484; 85025; 85379; 85610; 93005; 93017; 93306; 96374; 96375; 99285; A9500; J2405; J2785; J7030; Q9967